=== PATIENT | female | born 1980 | race Caucasian/White ===

== ENCOUNTER 2019-02-18 11:02 | Emergency (ER) | payer BC ==
[~2019-02-18] VITALS: Ht 160 cm; Wt 53.1 kg
--- NOTE | 2019-02-18 11:07 | NUR ---
Patient to ER bed 7 to gown for evaluation. Side rails up. Report given to KIMBERLY TADEO.
[2019-02-18 11:08] VITALS: BP_SYST 139
--- NOTE | 2019-02-18 11:12 | NUR ---
ER at bedside examining patient.
--- NOTE | 2019-02-18 11:20 | NUR ---
PATIENT CAME IN COMPLAINING OF BEING SICK FOR OVER WEEK. PATIENT COMPLAINING OF COUGH AND SPITTING OUT LITTLE BIT OF GREEN PHLEM. PATIENT COMPLAINING OF SORE THROAT, RUNNY NOSE, AND MUFFLED EARS. PATIENT STATES SHE HASNT HAD MUCH OF AN APPETITE. PATIENT STATES SHE HAS SOME SOB. PATIENT NOT COMPLAINING OF NAUSEA OR VOMITING AT THE MOMENT. PATIENT ALERT AND ORIENTED X4.
--- NOTE | 2019-02-18 11:22 | NUR ---
# 20 gauge angiocath placed to LEFT AC. Use of asceptic technique. Opsite placed over site. Blood return noted. Blood for lab drawn from site. Flushed with 10 cc of normal saline. No evidence of infiltration noted. Patient tolerated well.
[2019-02-18 11:38] LABS: BASOPHILS % (AUTO) 0.7 % (0.0-2.0); EOSINOPHILS # (AUTO) 0.1 K/uL (0.0-0.4); EOSINOPHILS % (AUTO) 1.1 % (0.0-4.0); HEMATOCRIT 40.5 % (36-48); HEMOGLOBIN 13.9 g/dL (12.0-16.0); LYMPHOCYTES # (AUTO) 1.3 K/uL (1.0-5.5); LYMPHOCYTES % (AUTO) 19.5 % (20.5-51.5); MEAN CORPUSCULAR HEMOGLOBIN 32 pg (27-31); MEAN CORPUSCULAR HGB CONC 34 % (32-36); MEAN CORPUSCULAR VOLUME 92 fL (79.0-98.0); MONOCYTES # (AUTO) 0.4 K/uL (0.0-1.0); MONOCYTES % (AUTO) 5.9 % (1.7-9.3); NEUTROPHILS # (AUTO) 4.9 K/uL (1.8-7.7); NEUTROPHILS % (AUTO) 72.8 % (40.0-70.0); PLATELET COUNT (AUTO) 390 K/uL (130-430); RED BLOOD CELL COUNT(AUTO) 4.38 MIL/uL (4.2-6.2); RED CELL DISTRIBUTION WIDTH 13.3 % (9.0-15.0); WHITE BLOOD COUNT (AUTO) 6.7 K/uL (4.8-10.8)
[2019-02-18 11:53] LABS: ANION GAP 9 (5-15); CALCIUM 9.4 mg/dL (8.4-11.0); CHLORIDE 99 mmol/L (98-107); CREATININE 0.78 mg/dL (0.55-1.30); GLUCOSE 90 mg/dL (70-99); POTASSIUM 3.5 mmol/L (3.5-5.1); SODIUM SERUM 135 mmol/L (136-145); UREA NITROGEN, BLOOD 6 mg/dL (8-21)
[2019-02-18 11:56] LABS: GFR AFRICAN AMERICAN 105 mL/min (>90)
[2019-02-18 11:58] LABS: INR 0.9 (0.8-1.2); PROTHROMBIN TIME 9.3 SECS (9.5-12.5)
[2019-02-18] MEDS ORDERED: IOHEXOL 350 mgI/mL, 150 ML INFUS..BTL IV ONE (12:06)
[2019-02-18 12:07] LABS: ALANINE AMINOTRANSFERASE 19 U/L (12-78); AMYLASE 38 U/L (0-100); ASPARTATE AMINOTRANSFERASE 22 U/L (10-37); FREE T4 (FREE THYROXINE) 0.7 ng/dL (0.6-1.6); LIPASE 104 U/L (73-393); THYROID STIMULATING HORMONE 0.81 uIu/mL (0.34-4.82); TOTAL BILIRUBIN 0.4 mg/dL (0.0-1.0)
[2019-02-18] MEDS ORDERED: ALBUTEROL SULFATE 0.083% 2.5 MG/3 ML VIAL.NEB INH ONE (12:45)
[2019-02-18] MEDS ORDERED: IPRATROPIUM BROM 0.5 MG/2.5 ML VIAL.NEB (ATROVENT) INH ONE (12:45)
--- NOTE | 2019-02-18 13:04 | NUR ---
PATIENT SAID SHE FEELS THE SAME AFTER BREATHING TREATMENT. DR CHRISTINE WILL BE MADE AWARE.
--- NOTE | 2019-02-18 13:07 | NUR ---
DR CHRISTINE AT BEDSIDE TALKING TO PATIENT.
[2019-02-18 14:15] VITALS: BP_SYST 132
--- NOTE | 2019-02-18 14:15 | NUR ---
Patient given written and verbal discharge instructions and verbalizes understanding. ER MD discussed with patient the results and treatment provided. Patient in stable condition. ID arm band removed. IV catheter removed intact and dressing applied, no active bleeding. Rx of ALBUTEROL AND PREDNISONE given. Patient educated on pain management and to follow up with PMD. Pain Scale 0/10. Opportunity for questions provided and answered. Medication side effect fact sheet provided.
== END 2019-02-18 14:15 | disposition home or self-care (01) ==
LOC: SED 11:02
DX: J40 Bronchitis, not specified as acute or chronic (principal)
CPT/HCPCS: 36415; 71045; 71275; 80053; 82150; 82550; 83605; 83690; 83880; 84145; 84439; 84443; 84484; 84703; 85025; 85610; 85730; 86710; 93005; 94640; 99284; J7613; Q9967

== ENCOUNTER 2021-04-17 12:29 | Emergency (ER) | payer BC ==
[~2021-04-17] VITALS: Ht 154.9 cm; Wt 65.8 kg
[2021-04-17 12:40] VITALS: BP_SYST 129
[2021-04-17] MEDS ORDERED: MECLIZINE HCL 25 MG TABLET (ANITVERT) PO ONE (12:45)
[2021-04-17] MEDS ORDERED: METOCLOPRAMIDE HCL 10 MG/2 ML VIAL IVP ONE (12:45)
[2021-04-17] MEDS ORDERED: NACL 0.9% 1,000 ML IV ONE (12:45)
[2021-04-17 13:08] LABS: BASOPHILS % (AUTO) 0.7 % (0.0-2.0); EOSINOPHILS % (AUTO) 0.3 % (0.0-4.0); HEMATOCRIT 37.7 % (36-48); HEMOGLOBIN 12.4 g/dL (12.0-16.0); LYMPHOCYTES # (AUTO) 1.4 K/uL (1.0-5.5); LYMPHOCYTES % (AUTO) 21.1 % (20.5-51.5); MEAN CORPUSCULAR HEMOGLOBIN 28 pg (27-31); MEAN CORPUSCULAR HGB CONC 33 % (32-36); MEAN CORPUSCULAR VOLUME 85 fL (79.0-98.0); MONOCYTES # (AUTO) 0.4 K/uL (0.0-1.0); MONOCYTES % (AUTO) 6.2 % (1.7-9.3); NEUTROPHILS # (AUTO) 4.9 K/uL (1.8-7.7); NEUTROPHILS % (AUTO) 71.7 % (40.0-70.0); PLATELET COUNT (AUTO) 341 K/uL (130-430); RED BLOOD CELL COUNT(AUTO) 4.43 MIL/uL (4.2-6.2); RED CELL DISTRIBUTION WIDTH 15.2 % (9.0-15.0); WHITE BLOOD COUNT (AUTO) 6.8 K/uL (4.8-10.8)
[2021-04-17] MEDS ORDERED: PANTOPRAZOLE SODIUM 40 MG/VIAL (PROTONIX) IVP ONE (13:15)
[2021-04-17 13:22] LABS: ANION GAP 12 (5-15); CALCIUM 9.6 mg/dL (8.4-11.0); CHLORIDE 104 mmol/L (98-107); CREATININE 0.63 mg/dL (0.55-1.30); GLUCOSE 99 mg/dL (70-99); POTASSIUM 3.4 mmol/L (3.5-5.1); SODIUM SERUM 143 mmol/L (136-145); UREA NITROGEN, BLOOD 4 mg/dL (8-21)
[2021-04-17 13:24] LABS: INR 0.9 (0.8-1.2); PROTHROMBIN TIME 9.8 SECS (9.5-12.5)
[2021-04-17 13:26] LABS: ALANINE AMINOTRANSFERASE 22 U/L (12-78); ALBUMIN 3.7 g/dL (3.4-4.8); AMYLASE 56 U/L (0-100); ASPARTATE AMINOTRANSFERASE 29 U/L (10-37); LIPASE 74 U/L (73-393); TOTAL BILIRUBIN 0.3 mg/dL (0.0-1.0)
[2021-04-17] MEDS ORDERED: MORPHINE 4 MG INJ. 4 MG/ML VIAL IVP ONE (13:30)
[2021-04-17] MEDS ORDERED: ONDANSETRON HCL 4 MG/2 ML VIAL IVP ONE (13:30)
[2021-04-17 13:31] LABS: GFR AFRICAN AMERICAN 133 mL/min (>90)
[2021-04-17 13:38] LABS: ACETONE, SERUM NEGATIVE (NEGATIVE)
[2021-04-17] MEDS ORDERED: MECL-109 PO (16:03)
[2021-04-17 17:29] VITALS: BP_SYST 151
== END 2021-04-17 17:31 | disposition home or self-care (01) ==
LOC: SED 12:29
DX: R42 Dizziness and giddiness (principal); K31.84 Gastroparesis
CPT/HCPCS: 36415; 70450; 71045; 76376; 80053; 82009; 82150; 82550; 83605; 83690; 83880; 84484; 84703; 85025; 85610; 85730; 93005; 96374; 96375; 99285; C9113; J2270; J2405; J2765; J7030; J8597

== ENCOUNTER 2022-01-05 12:38 | Observation (INO) | payer BC, OTHER ==
[~2022-01-05] VITALS: Ht 154.9 cm; Wt 58.1 kg
[~2022-01-05 12:38] MED LIST: MECL-109 PO
[2022-01-05 12:42] VITALS: BP_SYST 151
[2022-01-05] MEDS ORDERED: METOCLOPRAMIDE HCL 10 MG/2 ML VIAL IVP ONE ×2 (13:45→14:00)
[2022-01-05] MEDS ORDERED: MECLIZINE HCL 25 MG TABLET (ANITVERT) PO ONE (13:45)
[2022-01-05] MEDS ORDERED: NACL 0.9% 1,000 ML IV ONE (13:45)
[2022-01-05 14:18] LABS: BASOPHILS # (AUTO) 0.1 K/uL (0.0-0.2); BASOPHILS % (AUTO) 0.8 % (0.0-2.0); EOSINOPHILS % (AUTO) 0.3 % (0.0-4.0); HEMATOCRIT 40.1 % (36-48); HEMOGLOBIN 13.5 g/dL (12.0-16.0); LYMPHOCYTES # (AUTO) 0.8 K/uL (1.0-5.5); LYMPHOCYTES % (AUTO) 11.4 % (20.5-51.5); MEAN CORPUSCULAR HEMOGLOBIN 30 pg (27-31); MEAN CORPUSCULAR HGB CONC 34 % (32-36); MEAN CORPUSCULAR VOLUME 88 fL (79.0-98.0); MONOCYTES # (AUTO) 0.4 K/uL (0.0-1.0); MONOCYTES % (AUTO) 5.8 % (1.7-9.3); NEUTROPHILS # (AUTO) 5.6 K/uL (1.8-7.7); NEUTROPHILS % (AUTO) 81.7 % (40.0-70.0); PLATELET COUNT (AUTO) 274 K/uL (130-430); RED BLOOD CELL COUNT(AUTO) 4.54 MIL/uL (4.2-6.2); RED CELL DISTRIBUTION WIDTH 16.9 % (9.0-15.0); WHITE BLOOD COUNT (AUTO) 6.9 K/uL (4.8-10.8)
[2022-01-05 14:28] LABS: ANION GAP 9 (5-15); CALCIUM 9.7 mg/dL (8.4-11.0); CHLORIDE 101 mmol/L (98-107); CREATININE 0.72 mg/dL (0.55-1.30); GLUCOSE 92 mg/dL (70-99); POTASSIUM 3.2 mmol/L (3.5-5.1); SODIUM SERUM 139 mmol/L (136-145); UREA NITROGEN, BLOOD 5 mg/dL (8-21)
[2022-01-05 14:34] LABS: GFR AFRICAN AMERICAN 114 mL/min (>90)
[2022-01-05 14:37] LABS: ALANINE AMINOTRANSFERASE 40 U/L (12-78); ALBUMIN 4.2 g/dL (3.4-4.8); ASPARTATE AMINOTRANSFERASE 101 U/L (10-37); TOTAL BILIRUBIN 0.6 mg/dL (0.0-1.0)
[2022-01-05 14:39] LABS: ACETONE, SERUM NEGATIVE (NEGATIVE)
[2022-01-05] MEDS ORDERED: MORPHINE 4 MG INJ. 4 MG/ML VIAL IVP ONE (15:15)
[2022-01-05] MEDS ORDERED: LORazepam 2 MG/ML VIAL IVP PRN (15:45)
[2022-01-05] MEDS ORDERED: DOCUSATE SODIUM 100 MG CAPSULE PO PRN (15:45)
[2022-01-05] MEDS ORDERED: ACETAMINOPHEN 325 MG TABLET PO PRN ×2 (15:45→16:00)
[2022-01-05] MEDS ORDERED: FUROSEMIDE 40 MG/4 ML VIAL IVP ONE (15:45)
[2022-01-05] MEDS ORDERED: MUPIROCIN 2% TOPICAL OINTMENT 22 GM NS PRN (15:45)
[2022-01-05] MEDS ORDERED: MAGNESIUM SULFATE 50 ML IV PRN (15:45)
[2022-01-05 16:30] VITALS: BP_SYST 152
[2022-01-05] MEDS: NACL 0.9% 1,000 ML IV SCH (17:08)
[2022-01-05 20:00] VITALS: BP_SYST 140
[2022-01-05] MEDS: ZOLPIDEM TARTRATE 5 MG TABLET PO PRN (21:45)
[2022-01-05] MEDS: HYDROcodone/ACETAMIN 5-325 MG TAB (NORCO/ VICODIN) PO PRN (21:46)
[2022-01-06] VITALS: BP_SYST 139
[2022-01-06] MEDS: HYDROcodone/ACETAMIN 5-325 MG TAB (NORCO/ VICODIN) PO PRN ×3 (04:00→20:33)
[2022-01-06] MEDS: NACL 0.9% 1,000 ML IV SCH ×2 (04:15→09:03)
[2022-01-06 06:58] LABS: EOSINOPHILS # (AUTO) 0.1 K/uL (0.0-0.4); EOSINOPHILS % (AUTO) 3.4 % (0.0-4.0); HEMATOCRIT 36.3 % (36-48); HEMOGLOBIN 11.9 g/dL (12.0-16.0); LYMPHOCYTES # (AUTO) 1.5 K/uL (1.0-5.5); LYMPHOCYTES % (AUTO) 40.2 % (20.5-51.5); MEAN CORPUSCULAR HEMOGLOBIN 29 pg (27-31); MEAN CORPUSCULAR HGB CONC 33 % (32-36); MEAN CORPUSCULAR VOLUME 90 fL (79.0-98.0); MONOCYTES # (AUTO) 0.4 K/uL (0.0-1.0); MONOCYTES % (AUTO) 10.8 % (1.7-9.3); NEUTROPHILS # (AUTO) 1.7 K/uL (1.8-7.7); NEUTROPHILS % (AUTO) 44.6 % (40.0-70.0); PLATELET COUNT (AUTO) 231 K/uL (130-430); RED BLOOD CELL COUNT(AUTO) 4.05 MIL/uL (4.2-6.2); RED CELL DISTRIBUTION WIDTH 16.9 % (9.0-15.0); WHITE BLOOD COUNT (AUTO) 3.8 K/uL (4.8-10.8)
[2022-01-06 07:19] LABS: CALCIUM 8.1 mg/dL (8.4-11.0); CREATININE 0.52 mg/dL (0.55-1.30)
[2022-01-06 08:00] VITALS: BP_SYST 153
[2022-01-06] MEDS ORDERED: POTASSIUM CHLORIDE 20 MEQ TAB.PRT.SR PO ONE (08:15)
[2022-01-06 10:47] LABS: BARBITURATE, URINE NEGATIVE (NEG <=200); BENZODIAZEPINE, URINE POSITIVE (NEG <=150); CANNABINOID, URINE NEGATIVE (NEG <=50); COCAINE, URINE NEGATIVE (NEG <=150); METHAMPHETAMINES SCREEN,URINE NEGATIVE (NEG <=500); OPIATE, URINE POSITIVE (NEG <=100); PHENCYCLIDINE SCREEN,URINE NEGATIVE (NEG <=25); UR TRICYCLIC ANTIDEPRESSANTS NEGATIVE (NEG <=300); URINE AMPHETAMINE NEGATIVE (NEG <=500); URINE METHADONE NEGATIVE (NEG <=200); URINE OXYCODONE SCREEN NEGATIVE (NEG <=100); URINE PROPOXYPHENE SCREEN NEGATIVE (NEG <=300)
[2022-01-06] MEDS: ONDANSETRON HCL 4 MG/2 ML VIAL IVP PRN (10:54)
[2022-01-06] MEDS ORDERED: GADOTERATE MEGLUMINE 7.5 MMOL/15 ML VIAL IV ONE (12:02)
[2022-01-06 12:29] VITALS: BP_SYST 162
[2022-01-06 15:52] LABS: BILIRUBIN,URINE NEGATIVE (NEGATIVE); BLOOD, URINE NEGATIVE (NEGATIVE); CLARITY/URINE CLEAR (CLEAR); GLUCOSE,URINE NEGATIVE (NEGATIVE); KETONES,URINE NEGATIVE (NEGATIVE); LEUKOCYTE ESTERASE ,URINE NEGATIVE (NEGATIVE); NITRITE, URINE NEGATIVE (NEGATIVE); PH,URINE 6.5 (5.0-8.0); PROTEIN URINE NEGATIVE (NEGATIVE); UROBILINOGEN,URINE 0.2 (0.2-1.0)
[2022-01-06 15:53] LABS: HCG,QUAL RESULT NEGATIVE (NEGATIVE)
[2022-01-06 16:58] VITALS: BP_SYST 134
[2022-01-06 18:19] LABS: COLOR,URINE STRAW (YELLOW)
[2022-01-06] MEDS ORDERED: ALPRAZolam 0.25 MG TABLET PO ONE (19:15)
[2022-01-06 20:00] VITALS: BP_SYST 145
[2022-01-06] MEDS: ZOLPIDEM TARTRATE 5 MG TABLET PO PRN (23:39)
[2022-01-07 01:56] VITALS: BP_SYST 106
[2022-01-07] MEDS: NACL 0.9% 1,000 ML IV SCH (06:14)
[2022-01-07 06:51] LABS: EOSINOPHILS # (AUTO) 0.2 K/uL (0.0-0.4); EOSINOPHILS % (AUTO) 4.4 % (0.0-4.0); HEMOGLOBIN 12.2 g/dL (12.0-16.0); LYMPHOCYTES # (AUTO) 1.5 K/uL (1.0-5.5); LYMPHOCYTES % (AUTO) 42.5 % (20.5-51.5); MEAN CORPUSCULAR HEMOGLOBIN 30 pg (27-31); MEAN CORPUSCULAR HGB CONC 33 % (32-36); MEAN CORPUSCULAR VOLUME 90 fL (79.0-98.0); MONOCYTES # (AUTO) 0.3 K/uL (0.0-1.0); MONOCYTES % (AUTO) 8.2 % (1.7-9.3); NEUTROPHILS # (AUTO) 1.6 K/uL (1.8-7.7); NEUTROPHILS % (AUTO) 43.9 % (40.0-70.0); PLATELET COUNT (AUTO) 244 K/uL (130-430); RED BLOOD CELL COUNT(AUTO) 4.13 MIL/uL (4.2-6.2); RED CELL DISTRIBUTION WIDTH 16.8 % (9.0-15.0); WHITE BLOOD COUNT (AUTO) 3.5 K/uL (4.8-10.8)
[2022-01-07 07:55] LABS: CREATININE 0.53 mg/dL (0.55-1.30); POTASSIUM 3.7 mmol/L (3.5-5.1)
[2022-01-07 08:00] VITALS: BP_SYST 153
[2022-01-07] MEDS: HYDROcodone/ACETAMIN 5-325 MG TAB (NORCO/ VICODIN) PO PRN ×2 (08:37→14:50)
[2022-01-07] MEDS ORDERED: METOPROLOL TARTRATE 25 MG TABLET PO ONE (09:00)
[2022-01-07 11:53] VITALS: BP_SYST 132
[2022-01-07] MEDS: ONDANSETRON HCL 4 MG/2 ML VIAL IVP PRN (14:54)
[2022-01-07 16:40] VITALS: BP_SYST 129
[2022-01-07] MEDS ORDERED: ONDA-8 TL (17:33)
[2022-01-07] MEDS ORDERED: ZOLP5TAB2 PO (17:33)
== END 2022-01-07 19:00 | disposition home or self-care (01) ==
LOC: SED 12:38 → SMU 15:36 → INTOOBSV 15:36 → SMU 16:09
PROVIDERS: ADMIT General Practice; ATTEND General Practice
DX: G90.9 Disorder of the autonomic nervous system, unspecified (principal); Z20.822 Contact with and (suspected) exposure to COVID-19; S09.90XA Unspecified injury of head, initial encounter; R42 Dizziness and giddiness; G43.909 Migraine, unspecified, not intractable, without status migrainosus; G44.309 Post-traumatic headache, unspecified, not intractable; E87.6 Hypokalemia; R55 Syncope and collapse; R74.01 Elevation of levels of liver transaminase levels; H66.92 Otitis media, unspecified, left ear; F41.9 Anxiety disorder, unspecified; W19.XXXA Unspecified fall, initial encounter; Y93.89 Activity, other specified; Y92.89 Other specified places as the place of occurrence of the external cause; Z79.899 Other long term (current) drug therapy
CPT/HCPCS: 36415 ×3; 70450; 70553; 71045; 76376; 80048 ×2; 80053; 80307; 81003; 82009; 82550; 83735 ×2; 84443; 84484; 84703; 85025 ×3; 87081; 87426; 93005; 93880; 96361 ×3; 96374; 96375 ×2; 96376; 97162; 99285; A9575; G0378 ×3; J1940; J2270; J2405 ×2; J2765; J8597